=== PATIENT | female | born 1955 | race Caucasian/White ===

== ENCOUNTER 2022-01-27 21:59 | Emergency (ER) | payer MEDICARE, BC ==
[2022-01-27] MEDS ORDERED: Lidocaine 1% 10 ML MDV INJECT ONE (22:26)
== END 2022-01-27 22:50 | disposition home or self-care (01) ==
LOC: JD.ED 21:59
DX: S61.214A Laceration without foreign body of right ring finger without damage to nail, initial encounter (principal); I10 Essential (primary) hypertension; W26.0XXA Contact with knife, initial encounter
CPT/HCPCS: 12001; 99282; 99282-25

== ENCOUNTER 2024-04-01 09:28 | Emergency (ER) | payer MEDICARE, BC | END 2024-04-01 13:05 | disposition home or self-care (01) | LOC: JD.ED 09:28 | DX: R04.0 Epistaxis (principal); I10 Essential (primary) hypertension; E03.9 Hypothyroidism, unspecified; Z90.710 Acquired absence of both cervix and uterus | CPT/HCPCS: 99283 ==